=== PATIENT | female | born 1970 | race Caucasian/White ===

== ENCOUNTER 2017-02-15 14:48 | Outpatient (CLI) | payer BC ==
[2017-02-15 15:32] LABS: #Eosinphils 0.3 thou/uL (0.0-0.7); #Lymphocytes 1.7 thou/uL (1.20-3.40); #Monocytes 0.5 thou/uL (0.11-0.59); #Neutrophils 2.6 thou/uL (1.40-6.50); %Basophils 0.9 % (0.0-1.0); %Eosinophils 5.1 % (0.0-10.0); %Lymphocytes 33.4 % (21.0-51.0); %Monocytes 10.1 % (0.0-10.0); Mean Platelet Volume 6.7 fL (7.4-10.4); Red Blood Cell (RBC) Count 3.91 mill/uL (4.20-5.40); White Blood Cell (WBC) Count 5.1 thou/uL (4.8-10.8)
[2017-02-15 15:52] LABS: Anion Gap 13 mmol/L (10-20); BUN (Urea Nitrogen) 11 mg/dL (7.0-18.7); Calc. Creatinine Clearance 0 mL/min (70-130); Calcium 9.3 mg/dL (7.8-10.44); Carbon Dioxide 27 mmol/L (22-29); Chloride 104 mmol/L (98-107); Estimated GFR-MDRD Greater than 90
== END 2017-02-15 14:49 | disposition home or self-care (01) ==
LOC: LABBT 14:48
PROVIDERS: ATTEND Surgery
DX: Z01.812 Encounter for preprocedural laboratory examination (principal); C50.912 Malignant neoplasm of unspecified site of left female breast
CPT/HCPCS: 80048; 84703; 85025

== ENCOUNTER 2017-02-21 07:05 | Day surgery (SDC) | payer BC ==
[2017-02-15 14:51] VITALS: BMI 22.6
[2017-02-21] MEDS ORDERED: Scopolamine 1.5 mg/72 hour Patch ONE (11:10)
[2017-02-21] MEDS ORDERED: Levofloxacin 500 mg/D5W 100 ml Premix Bag ONE (12:35)
[2017-02-21] MEDS ORDERED: Clindamycin/D5W 900 mg/50 ml Premix Bag ONE (12:38)
--- NOTE | 2017-02-21 12:49 | NM ---
LEFT BREAST LYMPHOSCINTIGRAPHY: Date: 02/21/17 INDICATION: Left breast cancer. TECHNIQUE: Details of the procedure were discussed with the patient. The left breast nipple areolar complex was cleansed with three separate alcohol swabs. Following this, four separate aliquots for a total of 0.4 millicuries of technetium-99m filtered sulfur colloid was administered within the subcutaneous tissu es surrounding the nipple areolar complex. This area was massaged and underwent planar imaging until the first lymph nodes within the left axillary region were identified. These were marked on the patie nt's skin prior to patient's transfer to the preoperative holding suite. IMPRESSION: Successful left breast lymphoscintigraphy. POS: [facility]
[2017-02-21] MEDS ORDERED: Lidocaine 2% PF 5 ML VIAL ONE (12:50)
[2017-02-21] MEDS ORDERED: Bupivacaine/Epinephrine 0.25% 30 ML VIAL ONE ×2 (12:50→13:35)
[2017-02-21] MEDS ORDERED: Isosulfan Blue 50 MG/5 ML VIAL ONE (12:54)
[2017-02-21] MEDS ORDERED: Midazolam HCl 2 mg/2 ml Vial ONE (13:07)
[2017-02-21] MEDS ORDERED: Fentanyl 100 MCG/2 ML VIAL ONE ×2 (13:14→15:02)
[2017-02-21] MEDS ORDERED: Promethazine HCl 25 MG/ML VIAL ONE ×2 (15:02→15:44)
--- NOTE | 2017-02-21 16:21 | RAD ---
AP VIEW CHEST 02/21/17 HISTORY: Postoperative chest radiograph. AP view chest is obtained on 02/21/17. AP view chest demonstrates placement of a right jugular Mediport catheter. Distal tip overlies the SV C. The lungs are well aerated. No evidence of hemo or pneumothorax seen. The left lung is well aerate d. No acute intrathoracic abnormality is seen. No evidence of effusion seen. IMPRESSION: Postoperative chest radiograph with no acute intrathoracic abnormality seen. POS: [facility]
--- NOTE | 2017-02-21 16:26 | MMO ---
LEFT BREAST SURGICAL SPECIMEN: INDICATION: Left breast cancer. FINDINGS: The specimen contains a mass with associated biopsy clip. Findings were called to Dr. Thorne at 3:0 0 p.m. on 02/21/17 in the operating room. IMPRESSION: BIRADS category 6 - Known malignancy. The specimen contains the biopsy clip and mass. POS: [facility]
--- NOTE | 2017-02-21 16:58 | MMO ---
LEFT BREAST MAMMOGRAPHIC-GUIDED NEEDLE LOCALIZATION: INDICATION: Left breast cancer. TECHNIQUE: Informed consent was obtained. The patient was placed in CC compression and a preprocedure cavalry scout nader ge was obtained localizing the mass and associated biopsy clip within the left breast 6 o'clock posit ion, posterior depth. The site overlying this region (inferior left breast) was sterilely prepped . The subcutaneous tissues were anesthetized with buffered 1% Lidocaine. Under mammographic guidance, a 5 cm [place] needle was guided into the mass adjacent to the biopsy clip. The depth of the needle a nd wire placement was adjusted on the 90-degree LM projection. The tip of the needle was placed 1.5 cm to the level of the mass lesion and biopsy clip. The wire was deployed. The wire and needle cons truct was fixated to the patient's chest wall with a protective cover device. The patient tolerated the procedure without difficulty. IMPRESSION: BIRADS category 6 - known malignancy. Successful needle and wire localization of the left breast mas s and biopsy clip. POS: [facility]
[2017-02-21] MEDS ORDERED: PHENYLEPHRINE-NS 100 MCG/ML 10 ML SYRINGE ONE (17:16)
[2017-02-21] MEDS ORDERED: Propofol 200 MG/20 ML VIAL ONE (17:16)
[2017-02-21] MEDS ORDERED: Dexamethasone 20 MG/5 ML VIAL ONE (17:16)
[2017-02-21] MEDS ORDERED: Ketorolac Tromethamine 30 MG/ML VIAL ONE (17:16)
[2017-02-21] MEDS ORDERED: Metoclopramide HCl 10 MG/2 ML VIAL ONE (17:16)
[2017-02-21] MEDS ORDERED: Ondansetron HCl/PF 4 MG/2 ML Vial ONE (17:16)
--- NOTE | 2017-02-22 00:33 | OP ---
DATE OF PROCEDURE: 02/21/2017 PREOPERATIVE DIAGNOSIS: Medullary breast carcinoma, left breast. POSTOPERATIVE DIAGNOSIS: Medullary breast carcinoma, left breast. PROCEDURE: 1. Left breast partial mastectomy after needle localization. 2. Left deep axillary node biopsy (sentinel node protocol). 3. Tunneled central line with subcutaneous port (MediPort) CT injectable. SURGEON: Keny Thorne M.D. ANESTHESIA: General. ESTIMATED BLOOD LOSS: Minimal. COMPLICATIONS: None. SPECIMEN: Left breast marked with 2 short superior, 1 long lateral and sent to path for final diagno sis. There were 2 sentinel nodes found in the left axilla. INDICATION: The patient is a 46-year-old female who is status post core needle biopsy of left breast palpable mass revealing medullary breast carcinoma grade III, ER/MA, HER2/jolene negative. She chose b reast conservation treatment. She was discussed at the [facility] Conference. She understa nds risks, benefits, alternative procedures and gave consent to proceed. TECHNIQUE: The patient was taken to the operating room and placed supine on the table. She had unde rgone preoperative placement of needle localization wire in the left breast as well as preoperative l ymphoscintigraphy. Her bilateral neck, chest, abdomen were all prepped and draped in a sterile fashi on. 5 mL of methylene blue dye had been infiltrated under her left nipple and massaged for 10 minute s prior to the prep. The local anesthetic was infiltrated over the right internal jugular vein. Int rajugular vein was cannulated using a 22-gauge finder needle followed by a Seldinger needle. Wire wa s passed into the superior vena cava under fluoroscopic guidance and a small naun was made at the wir e entrance site. A separate 3-cm incision was made in the right upper chest. Subcutaneous pocket ma de below the lower incision. Tubing for the MediPort tunneled from the inferior to the superior inci lore. Introducer sheath was placed over the wire into the superior vena cava under fluoroscopic guid ance. The dilator and the wire were removed. The end of the catheter was sewn into the sheath as th e sheath was peeled away. The tip of the catheter was at the atriocaval junction. MediPort tubing c ut to fit the MediPort at the lower incision, connected to the MediPort. The MediPort was placed in the subcutaneous pocket so to the fascia. The MediPort flushes and draws blood without difficulty, f lushed with a heparin flush. All incisions were irrigated and closed using 3-0 Vicryl, 4-0 Monocryl, and Dermabond. Next, an incision was made on the inferior hairline of the left axilla. Cautery dissected down throu gh the clavipectoral fascia. During the dissection, there were 2 blue nodes found, both with high co unts in the 800s-900s on the back table. The background count then dropped to near 0. The wound is irrigated. There is no bleeding. The wound was closed using 3-0 Vicryl, 4-0 Monocryl, and Dermabond . A vertical incision was made over the palpable abnormality in the left breast. Flaps were raised sup eriorly, medially, inferiorly, laterally around the edge and end of the needle localization wire. Th e specimen was marked with 2 short superior, 1 long lateral and sent to x-ray which revealed the prev ious biopsy clip to be in the specimen. The specimen was then sent to path for final diagnosis. Met iculous hemostasis is obtained in the wound. There was no ongoing bleeding. The wound was closed us ing 3-0 Vicryl, 4-0 Monocryl, and Dermabond. The patient was en route to recovery in stable conditio n. All instrument counts, needle counts, and lap counts were correct.
== END 2017-02-21 17:15 | disposition home or self-care (01) ==
LOC: SDC 07:05
PROVIDERS: ATTEND Surgery
PROC: 0JH63WZ Insertion of Totally Implantable Vascular Access Device into Chest Subcutaneous Tissue and Fascia, Percutaneous Approach (ICD-10-PCS; principal; 2017-02-21)
PROC: 05HM33Z Insertion of Infusion Device into Right Internal Jugular Vein, Percutaneous Approach (ICD-10-PCS; principal; 2017-02-21)
PROC: 0HBU0ZZ Excision of Left Breast, Open Approach (ICD-10-PCS; principal; 2017-02-21)
PROC: 07B60ZX Excision of Left Axillary Lymphatic, Open Approach, Diagnostic (ICD-10-PCS; principal; 2017-02-21)
DX: C50.512 Malignant neoplasm of lower-outer quadrant of left female breast (principal); Z17.1 Estrogen receptor negative status [ER-]; Z79.899 Other long term (current) drug therapy; Z98.890 Other specified postprocedural states; Z88.0 Allergy status to penicillin; Z88.1 Allergy status to other antibiotic agents; Z88.5 Allergy status to narcotic agent; Z88.8 Allergy status to other drugs, medicaments and biological substances; Z91.013 Allergy to seafood
CPT/HCPCS: 19281; 71010; 76000; 76098; 78195; 88307; 88342; 96374; A9541; C1788; J1100; J1642; J1885; J1956; J2001; J2250; J2405; J2550; J2704; J2765; J3010; J3490; Q9968

== ENCOUNTER 2017-06-20 11:43 | Outpatient (CLI) | payer BC | END 2017-06-20 11:44 | disposition home or self-care (01) | LOC: BICRAD 11:43 | PROVIDERS: ATTEND Internal Medicine | DX: C50.919 Malignant neoplasm of unspecified site of unspecified female breast; R07.9 Chest pain, unspecified | CPT/HCPCS: 71046 ==

== ENCOUNTER 2017-06-26 14:06 | Outpatient (CLI) | payer BC ==
[~2017-06-26 14:06] MED LIST: Iopamidol 300 61% 30 ML VIAL ONE
--- NOTE | 2017-06-26 15:52 | RAD ---
EXAM: MEDIPORT CATHETER CHECK 06/26/17 HISTORY: Patient is experiencing discomfort and pain during infusion. COMPARISON: None. EXPOSURE: 0.2 minutes, 530.2 uGy*m2. FINDINGS: There is evidence of aspirated blood in the syringe used to access the Mediport catheter. The nurse who accessed the catheter states that aspiration was without difficulty. Via a Pena needle, patient was administered a total of 10 mL of contrast. Contrast opacifies the Mediport catheter. No evidence of leak of extravasation to imply fracture. Contrast flows freely from the tip of the catheter. There is no evidence of fibrin sheath. Patient was administered heparinized saline. Contrast is washed jodie y from the catheter. No retained contrast. IMPRESSION: No evidence of Mediport catheter fracture or leak. No evidence of fibrin sheath. POS: [facility]
== END 2017-06-26 14:07 | disposition home or self-care (01) ==
LOC: RAD 14:06
PROVIDERS: ATTEND Internal Medicine Hematology & Oncology
DX: C50.312 Malignant neoplasm of lower-inner quadrant of left female breast (principal); T82.848A Pain due to vascular prosthetic devices, implants and grafts, initial encounter
CPT/HCPCS: 36598; J1642

== ENCOUNTER 2017-07-29 11:53 | Outpatient (CLI) | payer BC ==
--- NOTE | 2017-07-29 14:53 | ULT ---
ABDOMINAL ULTRASOUND: History: Right abdominal pain. FINDINGS: The gallbladder is unremarkable. No evidence of gallstones. Common duct is normal caliber. The liver, spleen, and pancreas appear unremarkable. The tail of the pancreas is obscured. Kidneys are imaged a nd appear unremarkable. Aorta and IVC are unremarkable. There were images of the right lower quadrant. The appendix is not identified by ultrasound. IMPRESSION: Unremarkable abdominal ultrasound. POS: [facility]
== END 2017-07-29 11:54 | disposition home or self-care (01) ==
LOC: SCSULT 11:53
PROVIDERS: ATTEND Internal Medicine
DX: K30 Functional dyspepsia (principal)
CPT/HCPCS: 76700

== ENCOUNTER 2017-09-17 13:54 | Outpatient (CLI) | payer BC ==
--- NOTE | 2017-09-17 17:04 | PET ---
PET CT: 09/17/17 HISTORY: 47-year-old female with invasive ductal carcinoma of the left breast, status post lumpectomy and sent inel lymph node dissection. Last chemotherapy was 05/29/17. Exam is requested for staging. TECHNIQUE: PET scan with CT attenuation correction was performed from the vertex through the feet following the intravenous administration of 12.2 millicuries of 15-fluorodeoxyglucose. Imaging was performed after an uptake interval of 54 minutes. COMPARISON: None. FINDINGS: No carlota hypermetabolism is seen in the neck, chest, axillae, abdomen or pelvis. No hypermetabolic pu lmonary nodules, liver, adrenal or skeletal lesions are seen. There is physiologic activity in the GI and tracts and the brain. The CT scan used for attenuation correction demonstrates no evidence of pleural effusions or ascites. IMPRESSION: No evidence of metastatic disease. POS: [facility]
== END 2017-09-17 13:55 | disposition home or self-care (01) ==
LOC: PET 13:54
PROVIDERS: ATTEND Chiropractor
DX: M54.5 Low back pain (principal); M79.602 Pain in left arm; Z80.3 Family history of malignant neoplasm of breast
CPT/HCPCS: 78816; A9552

== ENCOUNTER 2018-02-14 12:33 | Outpatient (CLI) | payer BC ==
--- NOTE | 2018-02-14 13:55 | ULT ---
ULTRASOUND ABDOMEN LIMITED: (RIGHT UPPER QUADRANT) HISTORY: Right-sided abdominal pain in 47-year-old female. FINDINGS: There is a small amount of sludge in the gallbladder. The gallbladder has normal wall thickness and h as no evidence of gallstones. The hepatic echogenicity is normal. The right kidney has normal echogen icity and has no hydronephrosis. The pancreas is visualized, although ultrasound is relatively insens itive for pancreatic pathology compared to CT and MRI. There is no biliary dilation. The common duct caliber is 4 mm. There is a tiny amount of free fluid abutting the inferior surface of the right lob e of the liver. IMPRESSION: 1. Small amount of gallbladder sludge 2. tiny, trace amount of ascites. 3. Otherwise negative. jn [] POS: C
== END 2018-02-14 12:34 | disposition home or self-care (01) ==
LOC: ULT 12:33
PROVIDERS: ATTEND Family Medicine
DX: R10.31 Right lower quadrant pain (principal); K82.8 Other specified diseases of gallbladder
CPT/HCPCS: 76705; 80053; 83690; 85025; 87086

== ENCOUNTER 2018-02-20 11:14 | Outpatient (CLI) | payer BC ==
--- NOTE | 2018-02-20 13:23 | RAD ---
UPRIGHT AND SUPINE FRONTAL IMAGING OF THE ABDOMEN AND PELVIS: Date: 02-20-18 Comparison: None. History: Abdominal pain. FINDINGS: Upright imaging demonstrates no free intraperitoneal air. There is significant stool seen throughout the colon. The bowel gas pattern appears nonobstructed. No airfluid levels are seen on upright imagin g. IMPRESSION: No free intraperitoneal or evidence of small bowel obstruction. POS: [facility]
== END 2018-02-20 11:15 | disposition home or self-care (01) ==
LOC: RAD 11:14
PROVIDERS: ATTEND Surgery
DX: R10.9 Unspecified abdominal pain (principal)
CPT/HCPCS: 74019

== ENCOUNTER 2018-03-24 12:09 | Outpatient (CLI) | payer BC ==
[2018-03-24] MEDS ORDERED: Gadobenate Dimeglumine 529 MG/1 ML (20ML VIAL) ONE (12:10)
--- NOTE | 2018-03-24 14:31 | MRI ---
MRI OF THE ABDOMEN WITH AND WITHOUT IV CONTRAST: Date: 03/24/18 INDICATION: History of liver abnormality seen on a prior ultrasound examination with right upper quadrant abdomin al pain for 2-3 months. TECHNIQUE: Multiplanar, multisequence MR images were obtained of the abdomen with and without IV contrast utiliz ing 10 mL of MultiHance. Comparison made with prior right upper quadrant ultrasound dated 02/14/18. FINDINGS: No apparent signal alteration is seen on the in and dkj-zz-tihln images involving the liver. No focal T2 signal abnormality is evident within the liver. A small cyst measuring 2.0 mm is seen within the right hepatic dome. No focal abnormal enhancement is noted. The adrenal glands, pancreas, spleen, and kidneys are normal appearing. There is layered signal intensity seen within the gallbladder which ma y reflect a mild amount of gallbladder sludge. Small hemangioma is seen within the left aspect of the L4 vertebral body. IMPRESSION: 1. Mild amount of gallbladder sludge. No intrahepatic or extrahepatic biliary ductal dilatation is n oted. 2. Small right hepatic lobe cyst. 3. L4 bony hemangioma. POS: [facility]
== END 2018-03-24 12:10 | disposition home or self-care (01) ==
LOC: MRI 12:09
PROVIDERS: ATTEND Internal Medicine Gastroenterology
DX: R93.2 Abnormal findings on diagnostic imaging of liver and biliary tract (principal); R10.11 Right upper quadrant pain; K59.00 Constipation, unspecified; K82.8 Other specified diseases of gallbladder; K76.89 Other specified diseases of liver; D18.09 Hemangioma of other sites
CPT/HCPCS: 74183

== ENCOUNTER 2018-04-01 09:03 | Outpatient (CLI) | payer BC ==
--- NOTE | 2018-04-01 13:45 | ULT ---
LEFT BREAST ULTRASOUND LIMITED: Date: 04/01/18 HISTORY: 47-year-old female presents for a palpable finding in the left breast at 10 o'clock. This mass develo ped after lymphoscintigraphy and was previously percutaneously biopsied by Dr. Thorne in this office , and, according to the patient, has decreased in size. FINDINGS: There is a circumscribed, 0.8 x 1.8 x 1.8 cm diameter, mixed echoic and hypoechoic/anechoic mass in t he left breast at 10 o'clock, corresponding to the palpable finding. Additionally, several small cyst s were noted at 3 o'clock and 4 o'clock, respectively. IMPRESSION: Mixed solid and cystic mass, at 10 o'clock, accounting for the palpable finding. This mass may well r epresent residual from a hematoma, and, according to the patient, the biopsy results indicating fibro sis or scarring. Given that history and the fact that it has decreased in size, I feel that this shou ld be followed in 6 months. BI-RADS Category 3 - Probably benign findings. A 6 month follow-up left breast ultrasound is recommen ded. If this mass increases in size prior that 6 month time interval, having the patient return and follow -up ultrasound at that time is suggested. Findings were discussed with the patient, who was in agreement. POS: [facility]
== END 2018-04-01 09:04 | disposition home or self-care (01) ==
LOC: BICULT 09:03
PROVIDERS: ATTEND Surgery
DX: N63.22 Unspecified lump in the left breast, upper inner quadrant (principal)

== ENCOUNTER 2018-06-09 12:21 | Outpatient (CLI) | payer BC ==
--- NOTE | 2018-06-09 14:32 | RAD ---
SINUSES THREE VIEWS: HISTORY: Cough. Sore throat. FINDINGS: Atrophic right frontal air cell. Left frontal air cell appears clear. Maxillary sinuses appear aera karely and clear. The visualized sphenoid and ethmoid sinuses appear aerated and clear. IMPRESSION: Unremarkable sinuses. POS: H
--- NOTE | 2018-06-09 14:33 | RAD ---
2 VIEWS CHEST: Date: 06/09/18 COMPARISON: 06/20/17. HISTORY: Breast cancer, cough, sore throat. FINDINGS: CT injectable right-sided Port-A-Cath present, distal tip overlying cavoatrial junction as before. St able mild increased linear interstitial density. No pneumothorax, pleural fluid, focal consolidation, or alveolar edema. IMPRESSION: Stable appearance of the chest. No acute findings. POS: [facility]
== END 2018-06-09 12:22 | disposition home or self-care (01) ==
LOC: SCSRAD 12:21
PROVIDERS: ATTEND Internal Medicine
DX: J32.9 Chronic sinusitis, unspecified (principal); R05 Cough
CPT/HCPCS: 70220; 71046

== ENCOUNTER 2018-06-26 08:12 | Outpatient (CLI) | payer BC ==
--- NOTE | 2018-06-26 11:34 | CT ---
Contrast-enhanced images soft tissue neck. HISTORY: Dysphagia. Comparison made to previous exam from 05/16/2016. Contrast-enhanced CT images of the soft tissue neck demonstrates a right jugular Mediport catheter in place. No definite evidence of lymphadenopathy or masses seen. No evidence of parotid or carotid mass lesions seen. The thyroid gland is unremarkable. The lung apices are unremarkable. IMPRESSION: 1: Unremarkable contrast enhanced CT of the soft tissue neck.
== END 2018-06-26 08:13 | disposition home or self-care (01) ==
LOC: SCSCT 08:12 → CT 08:13
PROVIDERS: ATTEND Specialist
DX: R13.10 Dysphagia, unspecified (principal)
CPT/HCPCS: 70491

== ENCOUNTER 2018-07-25 12:35 | Outpatient (CLI) | payer BC ==
[~2018-07-25 12:35] MED LIST changes: +Gadobenate Dimeglumine 529 MG/1 ML (20ML VIAL) ONE; -Iopamidol 300 61% 30 ML VIAL ONE
--- NOTE | 2018-07-25 14:37 | MRI ---
MRI BRAIN WITHOUT AND WITH IV CONTRAST: HISTORY: Malignant neoplasm of the left breast. Breast cancer. Headaches. Nausea. FINDINGS: No evidence of infarct, hemorrhage, mass, midline shift or abnormal extra-axial fluid collections is seen. The ventricular size is normal and the basilar cisterns are patent. No abnormal postcontrast enhancement is seen. Minimal mucosal disease is seen in the paranasal sinuses. IMPRESSION: No evidence of intracranial metastases. This exam was interpreted in consultation with Dr. Kota Thrasher who concurs.
== END 2018-07-25 12:36 | disposition home or self-care (01) ==
LOC: BICMRI 12:35
PROVIDERS: ATTEND Internal Medicine Hematology & Oncology
DX: C50.312 Malignant neoplasm of lower-inner quadrant of left female breast (principal); R51 Headache; R11.0 Nausea
CPT/HCPCS: 70553; A9577

== ENCOUNTER 2018-07-29 07:38 | Outpatient (CLI) | payer BC ==
--- NOTE | 2018-07-29 10:38 | NM ---
HEPATOBILIARY SCAN: HISTORY:Right upper quadrant pain RADIOPHARMACEUTICAL: 5.3 mCi Technetium 99m Mebrofenin injected intravenously FINDINGS: There is normal tracer extraction by the liver with normal excretion into the biliary tracts and smal l bowel loops and normal filling of the gallbladder. The calculated gallbladder ejection fraction following an oral fatty meal measures 85%. IMPRESSION:Normal exam.
== END 2018-07-29 07:39 | disposition home or self-care (01) ==
LOC: NM 07:38
PROVIDERS: ATTEND Internal Medicine Gastroenterology
DX: R10.11 Right upper quadrant pain (principal)
CPT/HCPCS: 78227; A9537

== ENCOUNTER 2018-08-21 09:01 | Outpatient (CLI) | payer BC ==
--- NOTE | 2018-08-21 10:11 | MMO ---
Bilateral MAMMO Bilat Diag DDI+ANI. CLINICAL HISTORY: Patient is 48 years old and is seen for diagnostic exam and palpable abnormality in the left breast. The patient has no family history of breast cancer. The patient has a history of malignant (generic) in the left breast at age 48; Lumpectomy procedure revealed medullary left breast carcinoma in February, and Ultrasound Guided Core Biopsy procedure revealed invasive ductal carcinoma, with medullary features. in the left breast in January,. The patient has a history of left Excisional Biopsy in Jul, 2018 - malignant and left Ultrasound Guided Core Biopsy in January,. VIEWS: The views performed were: bilateral craniocaudal with tomosynthesis; bilateral mediolateral oblique with tomosynthesis; bilateral mediolateral; and bilateral exaggerated craniocaudal. FILMS COMPARED: The present examination has been compared to prior imaging studies performed at [facility] on 03/09/2015, 04/23/2016, 01/22/2017 and 08/21/2018. MAMMOGRAM FINDINGS: The breasts are extremely dense, which may lower the sensitivity of mammography. Finding 1: There is a fat containing, round mass measuring 13 millimeters with circumscribed margins seen in the left breast at 10 o'clock. Finding 2: There are stable benign appearing calcifications seen in both breasts. Finding 3: There are post operative changes seen in the lower-inner region of the left breast. There are no suspicious masses, suspicious calcifications, or new areas of architectural distortion. IMPRESSION: FINDING 1: MASS IN THE LEFT BREAST IS BENIGN. EVIDENCE FOR FAT NECROSIS. FINDING 2: STABLE CALCIFICATIONS IN BOTH BREASTS ARE BENIGN. FINDING 3: POST OPERATIVE CHANGES IN THE LEFT BREAST ARE BENIGN. A ROUTINE FOLLOW-UP MAMMOGRAM IN 1 YEAR IS RECOMMENDED. THE RESULTS OF THIS EXAM WERE SENT TO THE PATIENT. ACR BI-RADS Category 2 - Benign finding MAMMOGRAPHY NOTE: 1. A negative mammogram report should not delay a biopsy if a dominant of clinically suspicious mass is present. 2. Approximately 10% to 15% of breast cancers are not detected by mammography. 3. Adenosis and dense breasts may obscure an underlying neoplasm.
--- NOTE | 2018-08-21 10:38 | ULT ---
LEFT BREAST ULTRASOUND: HISTORY: Six-month followup from prior study, 04/01/2018. COMPARISON: 08/21/2018 diagnostic mammogram as well as 04/01/2018 ultrasound. FINDINGS: In the left breast at 10 o'clock 1 cm from the nipple, there is a circumscribed mixed echogenic mass measuring 1.4 x 1.0 x 1.5 cm evidence for a focal area of fat necrosis stable from prior ultrasound a nd correlating to the area of fat necrosis on today's mammogram. No evidence for other significant a bnormal ultrasound finding. IMPRESSION: Stable area of fat necrosis at 10 o'clock 1 cm from the nipple. BIRADS category 2, benign findings. POS: [facility]
== END 2018-08-21 09:02 | disposition home or self-care (01) ==
LOC: BICULT 09:01
PROVIDERS: ATTEND Internal Medicine Hematology & Oncology
DX: C50.312 Malignant neoplasm of lower-inner quadrant of left female breast (principal); R92.1 Mammographic calcification found on diagnostic imaging of breast; Z98.890 Other specified postprocedural states; N63.22 Unspecified lump in the left breast, upper inner quadrant
CPT/HCPCS: 77066; G0279

== ENCOUNTER 2018-08-21 10:29 | Outpatient (CLI) | payer BC ==
--- NOTE | 2018-08-21 12:11 | CT ---
Contrast-enhanced images of chest, abdomen and pelvis. Ash history: Patient with breast cancer. CT CHEST: A right jugular Mediport catheter is in place. No definite evidence of mediastinal, axillary or hilar lymphadenopathy seen. The lung parenchyma is unremarkable with no evidence of masses or lesions. CT abdomen and pelvis: The osseous structures are unremarkable except for disc space height loss and changes of spondylosis at L5-S1. The liver, spleen, gallbladder, adrenal glands and kidneys are unremarkable. No dilated loops of small bowel seen. A large amount of stool seen in the colon. No evidence of periaortic lymphadenopathy seen. No evidence of ascites seen. The uterus is somewhat heterogeneous. A small amount of free pelvic fluid seen. IMPRESSION: No evidence of metastatic disease seen.
--- NOTE | 2018-08-21 17:14 | NM ---
NUCLEAR MEDICINE BONE SCAN WHOLE BODY: (SKELETAL SCINTIGRAPHY) 08/21/18 HISTORY: 48-year-old female with left breast cancer: malignant neoplasm of lower-inner quadrant of left femal e breast. Restaging. TECHNIQUE: IV injection of [id number]: 32.6 mCi 3 hour delayed whole body skeletal scintigraphy in anterior and posterior views. FINDINGS: There are no foci of asymmetrically increased uptake that are particularly suspicious for bone metast ases. IMPRESSION: No compelling evidence of skeletal metastasis. RIANNA Hernandez POS: [facility]
== END 2018-08-21 10:30 | disposition home or self-care (01) ==
LOC: CT 10:29
PROVIDERS: ATTEND Internal Medicine Hematology & Oncology
DX: C50.919 Malignant neoplasm of unspecified site of unspecified female breast (principal)
CPT/HCPCS: 71260; 74177; 78306; A9503

== ENCOUNTER 2019-10-13 08:41 | Outpatient (CLI) | payer BC ==
--- NOTE | 2019-10-13 09:38 | BD ---
EXAM: DEXA bone density examination HISTORY: 49-year-old postmenopausal female for screening COMPARISON: None FINDINGS: L1--bone mineral density 0.877 g/sq cm; T score -1.0 L2--bone mineral density 0.989 g/sq cm; T score -0.4 L3--bone mineral density 0.969 g/sq cm; T score -1.0 L4--bone mineral density 0.970 g/sq cm; T score -0.8 Total L1-L4--bone mineral density 0.954 g/sq cm; T score -0.8 Left femoral neck--bone mineral density0.737; T score -1.0 Total proximal left femur--bone mineral density 0.979; T score 0.3 IMPRESSION: Normal bone density.
== END 2019-10-13 08:42 | disposition home or self-care (01) ==
LOC: BICMAMMO 08:41
PROVIDERS: ATTEND Internal Medicine
DX: Z13.820 Encounter for screening for osteoporosis (principal); Z85.3 Personal history of malignant neoplasm of breast
CPT/HCPCS: 77080

== ENCOUNTER 2020-06-28 10:04 | Outpatient (CLI) | payer BC | END 2020-06-28 10:05 | disposition home or self-care (01) | LOC: BICULT 10:04 | PROVIDERS: ATTEND Surgery | DX: N63.20 Unspecified lump in the left breast, unspecified quadrant (principal) ==

== ENCOUNTER → 2020-06-29 | Day surgery (SDC) | payer BC | LOC: BICULT 09:47 | PROVIDERS: ATTEND Surgery | PROC: 0H9U3ZX Drainage of Left Breast, Percutaneous Approach, Diagnostic (ICD-10-PCS; principal; 2020-06-29) | DX: L98.8 Other specified disorders of the skin and subcutaneous tissue (principal); Z85.3 Personal history of malignant neoplasm of breast; Z88.0 Allergy status to penicillin; Z88.1 Allergy status to other antibiotic agents; Z88.5 Allergy status to narcotic agent | CPT/HCPCS: 19083; 88305; 88342 ==

== ENCOUNTER 2020-11-25 08:48 | Outpatient (CLI) | payer BC | END 2020-11-25 08:49 | disposition home or self-care (01) | LOC: BICMAMMO 08:48 | PROVIDERS: ATTEND Internal Medicine | DX: Z08 Encounter for follow-up examination after completed treatment for malignant neoplasm (principal); Z85.3 Personal history of malignant neoplasm of breast | CPT/HCPCS: G0279 ==

== ENCOUNTER 2021-04-19 16:28 | Outpatient (CLI) | payer BC | END 2021-04-19 16:29 | disposition home or self-care (01) | LOC: SCSRAD 16:28 | PROVIDERS: ATTEND Chiropractor | DX: M54.6 Pain in thoracic spine (principal) | CPT/HCPCS: 72072 ==

== ENCOUNTER 2022-03-14 14:08 | Outpatient (CLI) | payer BC | END 2022-03-14 14:09 | disposition home or self-care (01) | LOC: BICMAMMO 14:08 | PROVIDERS: ATTEND Surgery | DX: N63.10 Unspecified lump in the right breast, unspecified quadrant (principal); N60.01 Solitary cyst of right breast; Z90.12 Acquired absence of left breast and nipple | CPT/HCPCS: G0279 ==

== ENCOUNTER → 2022-06-29 | Day surgery (SDC) | payer BC | END | disposition home or self-care (01) | LOC: BICULT 14:03 | PROVIDERS: ATTEND Surgery | PROC: 0H9T3ZX Drainage of Right Breast, Percutaneous Approach, Diagnostic (ICD-10-PCS; principal; 2022-06-29) | DX: N60.01 Solitary cyst of right breast (principal); Z88.0 Allergy status to penicillin; Z88.1 Allergy status to other antibiotic agents; Z88.5 Allergy status to narcotic agent | CPT/HCPCS: 19083; 88112 ==

== ENCOUNTER 2023-05-06 08:47 | Outpatient (CLI) | payer BC | END 2023-05-06 08:48 | disposition home or self-care (01) | LOC: BICMAMMO 08:47 | PROVIDERS: ATTEND Surgery | DX: Z12.31 Encounter for screening mammogram for malignant neoplasm of breast (principal); Z85.3 Personal history of malignant neoplasm of breast; Z90.12 Acquired absence of left breast and nipple; Z98.890 Other specified postprocedural states | CPT/HCPCS: 77063; 77067 ==

== ENCOUNTER 2023-05-13 15:38 | Outpatient (CLI) | payer BC | END 2023-05-13 15:39 | disposition home or self-care (01) | LOC: BICRAD 15:38 | PROVIDERS: ATTEND Chiropractor | DX: M54.50 Low back pain, unspecified (principal) | CPT/HCPCS: 74018 ==